=== PATIENT | female | born 1960 | race Caucasian/White ===

== ENCOUNTER 2024-11-18 15:18 | Emergency (ER) | payer OTHER ==
[2024-11-18 16:15] LABS: #Basophils 0.1 thou/uL (0.0-0.2); #Eosinophils 0.3 thou/uL (0.0-0.7); #Lymphocytes 3.1 thou/uL (1.20-3.40); #Monocytes 0.6 thou/uL (0.11-0.59); #Neutrophils 5.5 thou/uL (1.40-6.50); %Basophils 1.2 % (0.0-1.0); %Eosinophils 3.3 % (0.0-10.0); %Lymphocytes 31.9 % (21.0-51.0); %Monocytes 6.3 % (0.0-10.0); %Neutrophils 57.2 % (42.0-75.0); Hematocrit 37.5 % (36.0-47.0); Hemoglobin 13.2 g/dL (12.0-16.0); Mean Corpuscular Hemoglobin 28.3 pg (27.0-31.0); Mean Corpuscular Volume 80.5 fl (78.0-98.0); Platelet Count 279 10x3/uL (130-400); Red Blood Cell (RBC) Count 4.66 mill/uL (4.20-5.40); White Blood Cell (WBC) Count 9.7 10x3/uL (4.8-10.8)
[2024-11-18 16:19] LABS: INR-International Normal Ratio 0.9; Prothrombin Time 12.7 sec (12.0-14.7)
[2024-11-18 16:20] LABS: PTT 30.1 sec (22.9-36.1)
[2024-11-18 16:25] LABS: ALT (SGPT) 21 U/L (Less than 34); AST (SGOT) 26 U/L (11-34); Albumin 3.6 g/dL (3.1-4.5); Alkaline Phosphatase 87 U/L (40-110); Anion Gap 15 mmol/L (10-20); BUN (Urea Nitrogen) 15 mg/dL (9.8-20.1); Bilirubin, Total 0.2 mg/dL (0.3-1.2); Calc. Creatinine Clearance 0 mL/min (70-130); Calcium 8.9 mg/dL (7.8-10.44); Carbon Dioxide 25 mmol/L (23-31); Chloride 106 mmol/L (98-107); Globulin 3.2 g/dL (2.4-3.5); Glucose 274 mg/dL (80-115); Potassium 3.9 mmol/L (3.5-5.1); Sodium 142 mmol/L (136-145)
[2024-11-18] MEDS ORDERED: Tenecteplase 50 MG ONE (16:52)
== END 2024-11-18 23:52 | disposition short-term general hospital (02) ==
LOC: BURERS 15:18
DX: I63.9 Cerebral infarction, unspecified (principal); R29.706 NIHSS score 6; E11.9 Type 2 diabetes mellitus without complications; I10 Essential (primary) hypertension
CPT/HCPCS: 36416; 70450; 80053; 85025; 85610; 85730; 93005; 36415-59; J3101